=== PATIENT | female | born 1985 | race Caucasian/White ===

== ENCOUNTER 2023-11-28 12:41 | Outpatient (CLI) | payer SELFPAY ==
[2023-11-28 14:06] LABS: HCG,Quantitative < 2 mIU/ml (0-5.42)
[2023-11-29 08:54] LABS: Progesterone 0.3 ng/mL (.)
== END 2023-11-28 23:59 | disposition home or self-care (01) ==
LOC: LAB 12:42
PROVIDERS: Visit Provider Obstetrics & Gynecology
DX: N92.6 Irregular menstruation, unspecified (principal)
CPT/HCPCS: 36415; 84144; 84702

== ENCOUNTER 2024-04-24 08:03 | Outpatient (CLI) | payer OTHER, SELFPAY ==
[2024-04-24 08:57] LABS: Basophils % 0.4 % (0.1-2.0); Eosinophils # 0.1 K/mm3 (0.0-0.4); Eosinophils % 0.9 % (0.1-12.0); Hematocrit 38.6 % (37.0-47.0); Lymphocytes % 29.8 % (10-50); Mean Corpuscular HGB Conc 33.7 g/dL (31.8-35.4); Mean Corpuscular Hemoglobin 32.2 pg (27.0-31.2); Mean Corpuscular Volume 95.5 fl (81-99); Mean Platelet Volume 9.4 fl (7.4-10.4); Monocytes # 0.4 K/mm3 (0.1-1.0); Monocytes % 6.6 % (1.7-9.3); Neutrophils # 4.2 K/mm3 (1.8-7.8); Platelet Count 300 K/mm3 (142-424); Red Blood Count 4.04 M/mm3 (4.20-5.40); Red Cell Distribution Width 12.7 % (11.5-17.5); White Blood Count 6.7 K/mm3 (4.8-10.8)
[2024-04-24 09:07] LABS: 25-OH Vitamin D, Total 31.4 ng/mL (30-100)
[2024-04-24 09:08] LABS: Free Thyroxine Index 3.2 ug/dL (5.93-13.13); T4 (Thyroxine) 10.3 ug/dl (5.53-11.0); Triiodothryronine (T3) Uptake 31 % (23.5-40.5)
[2024-04-24 09:22] LABS: Thyroid Stimulating Hormone 1.82 uIU/mL (0.465-4.68)
[2024-04-24 10:36] LABS: Hemoglobin A1C 4.7 % (4.0-6.0)
[2024-04-24 11:25] LABS: Alanine Aminotransferase 17 U/L (12-78); Albumin Level 4.5 g/dl (3.5-5.0); Albumin/Globulin Ratio 2.4 (1.1-1.8); Alkaline Phosphatase 55 U/L (38-126); Anion Gap 11.3 mEq/L (5-15); Aspartate Amino Transferase 20 U/L (14-36); Bilirubin,Total 0.5 mg/dl (0.2-1.3); Blood Urea Nitrogen 13 mg/dl (7-17); Calcium 9.1 mg/dl (8.4-10.2); Carbon Dioxide 23 mmol/L (22.0-30.0); Chloride 106 mmol/L (98-107); Chol/HDL Ratio 2.1 (1-3.5); Cholesterol 161 mg/dl (140-200); Estimated Glomerular Filt Rate 94 ml/min (>60); GFR (African American) 114 ML/MIN (>60); Globulin 1.9 g/dL (1.3-3.2); Glucose 92 mg/dl (74-100); HDL Cholesterol 77 mg/dl (40-60); Magnesium 2.1 mg/dl (1.6-2.3); Potassium 4.3 mmoL/L (3.5-5.1); Sodium 136 mmol/L (136-145); Total Protein,Serum 6.4 g/dl (6.3-8.2); Triglycerides 75 mg/dl (30-150); VLDL Cholesterol 15 mg/dL (0-40)
[2024-04-24 11:35] LABS: Direct LDL Cholesterol 56.37 mg/dL (100-129)
[2024-04-24 11:39] LABS: Iron 117 ug/dL (37-170)
[2024-04-24 11:55] LABS: Total Iron Binding Capacity 352 ug/dL (265-497)
[2024-04-24 12:13] LABS: Vitamin B12 305 pg/mL (239-931)
[2024-04-25 12:11] LABS: Insulin Level Total 14.7 uIU/mL (2.6-24.9); Testosterone,Total 42 ng/dL (8-60)
[2024-04-28 03:36] LABS: Vitamin B6 8.9 ug/L (3.4-65.2)
[2024-05-04 01:11] LABS: Anti Mullerian Hormone (AMH) 0.497 ng/mL (.)
== END 2024-04-24 23:59 | disposition home or self-care (01) ==
LOC: LAB 08:04
PROVIDERS: Visit Provider Obstetrics & Gynecology
DX: N92.6 Irregular menstruation, unspecified (principal); L74.8 Other eccrine sweat disorders
CPT/HCPCS: 36415; 80053; 80061; 82306; 82397; 82607; 82670; 82728; 83036; 83525; 83540; 83550; 83735; 84207; 84403; 84436; 84443; 84479; 85025

== ENCOUNTER 2024-05-05 09:01 | Outpatient (CLI) | payer OTHER, SELFPAY ==
[2024-05-05 11:06] LABS: HCG,Quantitative 1222 mIU/ml (0-5.42)
[2024-05-06 11:12] LABS: Progesterone 6.9 ng/mL (.)
== END 2024-05-05 23:59 | disposition home or self-care (01) ==
LOC: LAB 09:02
PROVIDERS: Visit Provider Obstetrics & Gynecology
DX: O03.9 Complete or unspecified spontaneous abortion without complication (principal)
CPT/HCPCS: 36415; 84144; 84702

== ENCOUNTER 2024-05-06 14:06 | Outpatient (CLI) | payer OTHER, SELFPAY ==
[2024-05-06 16:46] LABS: HCG,Quantitative 886 mIU/ml (0-5.42)
== END 2024-05-06 23:59 | disposition home or self-care (01) ==
LOC: LAB 14:06
PROVIDERS: Visit Provider Obstetrics & Gynecology
DX: O03.9 Complete or unspecified spontaneous abortion without complication (principal)
CPT/HCPCS: 36415; 84702